=== PATIENT | male | born 1970 | race Caucasian/White ===

== ENCOUNTER 2024-09-30 07:04 | Emergency (ER) | payer BC, SELFPAY ==
[2024-09-30 07:06] VITALS: BP 156/94
--- NOTE | 2024-09-30 07:27 | ED.GENMED ---
History of Present Illness
General
Chief Complaint: Anxiety
Source: patient and family
Exam Limitations: none
Time Seen by Provider: 09/30/24 07:12
Nursing documentation reviewed up to this point in time: agreed with
History of Present Illness
History of Present Illness:
Patient with history of hypothyroidism on levothyroxine and anxiety disorder, who had been on Zoloft previously, presents to ED accompanied by his mother who is concerned that patient is having significant anxiety attack, as he has been not able to
sleep recently. Patient states that he has had difficult time fixing his house which is causing anxiety. Patient reports feeling 'hopeless', but denies suicidal ideation. Patient otherwise has no physical complaints. Denies recent illness.
Review of Systems
Review of Systems
Allergies reviewed?: Yes
All Other Systems: ROS reviewed and negative except as documented in HPI and ROS
Constitutional: Reports no symptoms
Cardiac: Reports no symptoms
ABD/GI: Reports no symptoms
Musculoskeletal: Reports no symptoms
Skin: Reports no symptoms
Neurological: Reports no symptoms
Psychiatric: Reports depression and anxiety
Phy Exam
Physical Exam
Physical Exam:
Physical Exam
General: mild distress, not acutely ill. afebrile
Head: nc/at.
Neck: supple. normal range of motion
Neuro: alert and oriented x 3. no focal neurological deficits. normal speech
Skin: no rash
Psychiatric: well kept. interactive and cooperative, but anxious appearing
Course
Orders/Labs/Results
Orders:
Orders
09/30/24 07:26
Crisis Consult Urgent
Reason for Consult: depression/anxiety
Vital Signs
Initial and Last Documented VS:
Initial Vital Signs
Temp Pulse Resp BP Pulse Ox
98.3 F 75 20 156/94 98
09/30/24 07:06 09/30/24 07:06 09/30/24 07:06 09/30/24 07:06 09/30/24 07:06
Last Documented Vital Signs
Temp Pulse Resp BP Pulse Ox
98.3 F 75 20 156/94 98
09/30/24 07:06 09/30/24 07:06 09/30/24 07:06 09/30/24 07:06 09/30/24 07:06
MDM/Problems Addressed
MDM/Problems Addressed:
Patient evaluated in ED by [facility] early childhood worker. As patient remains hemodynamically stable, medically competent, and without any suicidal ideation, patient will be provided with outpatient resources, for an outpatient evaluation/treatment.
In the meantime, as patient is experiencing significant anxiety, patient will be provided with short course of Ativan, to be used only as needed, while at home. Patient and his mother expressed understanding at time of discharge.
*Critical Care Note
Total Time (30-74mins, 75-104mins- exclusive of procedures): Not Applicable
ED Attending Note
-
Portions of this chart may have been created with voice recognition software.� Occasional wrong word or��sound alike� substitutions may have occurred due to the inherent limitations of voice recognition software.
Discharge Plan
Departure
Patient Disposition: Home (Routine Discharge)
Date of Disposition: 09/30/24
Time of Disposition: 08:09
Patient with high blood pressure during this ER visit?: Yes
Condition: Fair
Discharge Problem:
Anxiety
Instructions: Anxiety, Adult (DC)
Prescriptions:
New
lorazepam [Ativan] 0.5 mg tablet
0.5 mg PO BID PRN (Reason: anxiety) Qty: 7 0RF
Referrals:
Debbie Baker MD [Family Provider] -
Stand Alone Forms: Return to Work
Activity Restrictions/Additional Instructions:
As discussed, please follow-up with your primary care physician and/or referred outpatient resources for continual evaluation and treatment. Your prescription has been sent electronically to [facility] pharmacy in [place]. You must not take this
medication when driving or working, as this medication may cause you to be drowsy.
Interventions
Interventions:
*Risk Screen - Suicide Last Done: 09/30/24 07:06
*General Assessment Last Done: 09/30/24 07:06
*Neglect/Abuse Screening Last Done: 09/30/24 08:09
*ED- Fall Risk Assessment Last Done: 09/30/24 08:09
*ED COVID-19 Vaccine History Last Done: 09/30/24 08:09
*Nursing Disposition Last Done: 09/30/24 08:34
ED-Psychological Assessment Last Done: 09/30/24 08:09
Discharge Date and Time
Discharge Date/Time: 09/30/24 08:35
Print Language: NEPALESE
[2024-09-30 08:09] VITALS: BMI 25.3
== END 2024-09-30 08:35 | disposition home or self-care (01) ==
LOC: EMR 07:04
PROVIDERS: EMERGENCY PHYSICIAN Emergency Medicine; FAMILY PHYSICIAN Family Medicine
DX: F41.9 Anxiety disorder, unspecified (principal); E03.9 Hypothyroidism, unspecified; Z79.890 Hormone replacement therapy
CPT/HCPCS: 99282